=== PATIENT | male | born 1995 | race Caucasian/White ===

== ENCOUNTER 2018-03-26 14:51 | Observation (INO) ==
[2018-03-26] MEDS ORDERED: ONDANSETRON 4 MG/2 ML VIAL IVP ONE (15:03)
[2018-03-26] MEDS ORDERED: Acetaminophen 1000mg Inj 1,000 MG/100 ML VIAL IV PRN (15:03)
[2018-03-26] MEDS ORDERED: Sodium Chloride 0.9% 1,000 ML PRIMARY IV ONE (15:03)
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
[2018-03-26 15:20] LABS: BASOPHILS # (AUTO) 0.01 10*3/UL; BASOPHILS % (AUTO) 0.2 % (0-1); EOSINOPHILS # (AUTO) 0.03 10*3/UL; EOSINOPHILS % (AUTO) 0.5 % (0-8); Hematocrit [HCT] 40.5 % (42.0-52.0); Hemoglobin [HGB] 14.2 g/dL (14.0-18.0); LYMPHOCYTES # (AUTO) 1.02 10*3/uL; MEAN CORPUSCULAR HEMOGLOBIN 30.2 PG (27-31); MEAN CORPUSCULAR HGB CONC 35.1 g/dL (33-37); MEAN CORPUSCULAR VOLUME 86.2 FL (80-90); MEAN PLATELET VOLUME 10.5 FL (7.4-12.2); MONOCYTES # (AUTO) 0.43 10*3/UL (0.3-0.8); MONOCYTES % (AUTO) 7.2 % (5-15); NEUTROPHILS # (AUTO) 4.45 10*3/UL; NEUTROPHILS % (AUTO) 74.8 % (50-80)
[2018-03-26 15:28] LABS: PLATELET MORPHOLOGY COMMENT NORMAL MORPHOLOGY (NORM); RBC MORPHOLOGY COMMENT NORMAL MORPHOLOGY (NORM); WBC MORPHOLOGY COMMENT NORMAL MORPHOLOGY (NORM)
[2018-03-26 15:33] LABS: BLOOD UREA NITROGEN 17 mg/dL (7-22); BUN/CREATININE RATIO 15.45 (6-20); SERUM ALBUMIN 4.3 g/dL (3.5-4.8)
--- NOTE | 2018-03-26 16:59 | DI ---
EXAM: CT Head Without Intravenous Contrast CLINICAL HISTORY: ITS.REASON trauma Physician Notes: Blunt trauma to right side of face TECHNIQUE: Axial computed tomography images of the head/brain without intravenous contrast. COMPARISON: None FINDINGS: Brain: No acute infarct. Question trace subarachnoid hemorrhage and hemorrhagic contusions in the right frontal lobe versus partial volume averaging. No mass effect or midline shift. Trace pneumocephalus along the right frontal lobe. Ventricles and sulci: Normal. No ventriculomegaly or intraventricular hemorrhage. Skull: Right frontal skull fracture suggested given the pneumocephalus, but better seen on accompanying CT face. Subcutaneous tissues: Right facial soft tissue hematoma partially visualized. Right frontal soft tissue hematoma. Sinuses: Normal. No air-fluid levels or mucosal thickening. Mastoid air cells: Normal. Orbits: Gas also seen in the superior aspect of the right orbit, suggesting fracture of the roof of the right orbit, better seen on accompanying CT face. The globes are grossly unremarkable. Gas noted anterior to the right globe. IMPRESSION: 1. Right frontal bone fracture involving the roof of the right orbit with gas noted in the right orbit and trace pneumocephalus along the right frontal lobe. Please see accompanying CT face. 2. Question trace subarachnoid hemorrhage and hemorrhagic contusions in the right frontal lobe versus partial volume averaging. [employer] Call Doctor Trauma
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
[2018-03-26 17:23] LABS: BILIRUBIN,URINE NEGATIVE (NEG); CLARITY,URINE CLEAR (CLEAR); COLOR,URINE YELLOW (Y); GLUCOSE, URINE (UA) NEGATIVE (NEG); OCCULT BLOOD,URINE Trace-lysed (NEG); PROTEIN,URINE NEGATIVE (NEG); UROBILINOGEN,URINE 0.2 EU/dL (0.2)
[2018-03-26 17:27] LABS: BACTERIA,URINE RARE; URINE SAMPLE TYPE CLEAN CATCH URINE
[2018-03-26] MEDS ORDERED: DIPH,PERTUSS,TET(ADACEL) VAC/PF 0.5 ML (Tdap) IM ONE (17:43)
[2018-03-26] MEDS ORDERED: Amoxicill/Clav 875/125mg Tab 1 TAB TAB PO ONE (17:43)
[2018-03-26] MEDS ORDERED: ONDANSETRON 4 MG/2 ML VIAL IVP PRN (19:02)
[2018-03-26] MEDS ORDERED: CALCIUM CARBONATE 500 MG (TUMS) CHEWABLE TABLET PO PRN (19:02)
[2018-03-26] MEDS ORDERED: LIDOCAINE W/ SODIUM BICARB 0.5 ML SYR SUBD PRN (19:02)
[2018-03-26] MEDS ORDERED: ACETAMINOPHEN 325 MG TABLET PO PRN (19:02)
[2018-03-26] MEDS ORDERED: DOCUSATE 100 MG CAPSULE PO PRN (19:02)
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
--- NOTE | 2018-03-26 20:36 | PDOC ---
HPI - History of Present Illness Date of Service: 03/26/18 Time of Service: 20:31 Chief Complaint: Head injury with loss of consciousness History of Present Illness: This very pleasant 22-year-old male with no prior past medical history who comes in after hitting his face with a post pounder working on parents today. This happened this afternoon, he states he probably passed out for about 5 minutes. He hit the right side of his eye. He's never had anything like this happen before. He states his head hurts but he does not have a headache per se , and pain medications in the emergency room did help that. He also had a little neck pain with this but that went away. No nausea or vomiting. On workup he was found to have an orbital fracture on the right side but in my discussion with the emergency room physician and research electrician in [place], Dr. Dick, did not feel that these were operable fractures and felt that reevaluation in about 72-96 hours would be reasonable with an research electrician. In addition the emergency room physician conveyed that he spoke with the neurosurgeon, Dr. Avendano, in [place], who suggested that pneumocephalus which was noted needs to be followed with a head CT to make sure that it's not worsening in to be monitored for any changes in symptoms that might suggest increased intracranial pressure but likely this would resolve. Dr. ng, the emergency room physician and myself, reviewed the literature and found that the patient should be at a 30 angle while being monitor as well as be on high flow oxygen on and to try and avoid any Valsalva maneuvers. The patient has not had any cough or sneeze. He denies any change in vision. Past Medical History Medical History: None Surgical History: No prior surgeries Pertinent Family History: States his parents are healthy and no history of medical issues that he is aware of in his family. Past Social History: Does not smoke and rarely drinks. Single. In college at [employer]. Joining the [employer] after graduation. Tobacco Use: Never Smoker In the Past 12 Months, Have Used or Abuse Any of the Following Substance: None Alcohol Use: Occasionally Medication / Allergies Home Medications: Home Medications 3 Medication Instructions Recorded Confirmed Type NK [No Home Medications Reported] 03/26/18 History Allergies/Adverse Reactions: Allergies 3 Allergy/AdvReac Type Severity Reaction Status Date / Time No Known Allergies Allergy Verified 03/26/18 19:07 Review of Systems - Review of Systems All Systems: Reviewed & No Additional Complaints Except as Stated (I did a 12 point review systems and other than that discussed in history present illness it is negative.) Exam - Vitals Vital Signs: Vital Signs Temperature 98.0 F Temperature Source Temporal Artery Scan Pulse Rate [Pulse Oximeter] 70 Pulse Rate 75 Respiratory Rate 18 Blood Pressure [Right Arm] 142/94 Blood Pressure [Left Arm] 138/88 Blood Pressure 130/83 Pulse Ox 100 Oxygen Flow Rate 10 Oxygen Delivery Method Oxymask Height 6 ft 2 in Weight 178 lb 1 oz - General General Appearance: No Acute Distress, Cooperative - Head Head Exam: Normocephalic, Ecchymosis (Has some bruising around the right eye, and this extends on the forehead as well on the right side.. Extraocular muscles are intact.) - Eye Eye Exam: POSITIVE: EOMI, No Scleral Icterus, Periorbital Swelling (Right sided) - ENT ENT Exam: POSITIVE: Mucous Membranes Moist - Neck Neck Exam: Normal Inspection, No Tenderness, No Lymphadenopathy, No Thyromegaly , JVP is not Raised - Respiratory Respiratory Exam: POSITIVE: Clear to Auscultation - Bilaterally, Breathing Non Labored, Normal to Percussion and Palpation - Cardiovascular Cardiovascular Exam: POSITIVE: RRR, No Murmur, No Clicks, No Gallops, No Rubs, No JVD - GI/Abdominal GI/Abdominal Exam: POSITIVE: Normal Bowel Sounds, Non Tender, Non Distended, Soft - Rectal Rectal Exam: POSITIVE: Deferred - External Exam: POSITIVE: Deferred Exam: POSITIVE: Deferred - Extremities Extremities Exam: POSITIVE: No Clubbing Present, No Edema Present, No Cyanosis Present - Back Back Exam: POSITIVE: No CVA Tenderness - Neurological Neurological Exam: POSITIVE: Alert, Oriented x 3, No Facial Droop, Speech Intact / Clear, Moves All Extremities Equally - Psychiatric Psychiatric Exam: POSITIVE: Normal Affect, Normal Mood Results - Labs CBC and BMP: 03/26/18 15:03 03/26/18 15:03 Additional Lab Results: Laboratory Results 03/26/18 03/26/18 03/26/18 Range/Units 15:03 15:03 15:03 WBC 5.95 (4.8-10.8) 10^3/uL RBC 4.70 (4.70-6.10) 10^6/uL Hgb 14.2 (14.0-18.0) g/dL Hct 40.5 L (42.0-52.0) % MCV 86.2 (80-90) FL MCH 30.2 (27-31) PG MCHC 35.1 (33-37) g/dL RDW Std Deviation 41.4 (39-50) fL RDW Coeff of Darrell 13.3 (11.5-14.5) % Plt Count 196 (140-350) 10*3/uL MPV 10.5 (7.4-12.2) FL Immature Gran % (Auto) 0.2 (0-5) % Neut % (Auto) 74.8 (50-80) % Lymph % (Auto) 17.1 (10-50) % Osborne % (Auto) 7.2 (5-15) % Eos % (Auto) 0.5 (0-8) % Baso % (Auto) 0.2 (0-1) % Immature Gran # (Auto) 0.01 10*3/UL Neut # (Auto) 4.45 10*3/UL Lymph # (Auto) 1.02 10*3/uL Osborne # (Auto) 0.43 (0.3-0.8) 10*3/UL Eos # (Auto) 0.03 10*3/UL Baso # (Auto) 0.01 10*3/UL WBC Morphology Comment Normal morphology (NORM) Plt Morphology Comment Normal morphology (NORM) RBC Morph Comment Normal morphology (NORM) Sodium 139 (135-145) meq/L Potassium 3.8 (3.8-5.2) meq/L Chloride 109 (98-112) meq/L Carbon Dioxide 22 L (23-33) meq/L Anion Gap 8 (5-20) BUN 17 (7-22) mg/dL Creatinine 1.1 (0.70-1.50) mg/dL Estimated GFR > 60 (>60 ml/min/1.73m(2)) BUN/Creatinine Ratio 15.45 (6-20) Glucose 84 (78-110) mg/dL Calculated Osmolality 288.0 (267-292) mOsm/kg Calcium 9.5 (8.7-10.7) mg/dL Magnesium 1.8 (1.6-2.4) mg/dL Total Bilirubin 0.5 (0.3-1.2) mg/dL AST 27 (21-57) IU/L ALT 36 (21-72) IU/L Alkaline Phosphatase 44 (38-126) IU/L Total Protein 7.2 (6.1-8.0) g/dL Albumin 4.3 (3.5-4.8) g/dL Globulin 3.0 (2.50-4.10) g/dL Albumin/Globulin Ratio 1.40 (1.3-2.0) mg/g Ur Collection Type Clean catch urine Urine Color Yellow (Y) Urine Clarity Clear (CLEAR) Urine pH 6.0 (5.0-8.5) Ur Specific [place] 1.015 (1.005-1.030) Urine Protein Negative (NEG) mg/dl Urine Glucose (UA) Negative (NEG) mg/dL Urine Ketones 15 (NEG) Urine Occult Blood Trace-lysed H (NEG) Urine Nitrate Negative (NEG) Urine Bilirubin Negative (NEG) Urine Urobilinogen 0.2 (0.2) EU/dL Ur Leukocyte Esterase Negative (NEG) Urine RBC None (NONE) /hpf Urine WBC None (NONE) Ur Squamous Epith Cells None (NONE) Ur Renal Epithelial Cell None (NONE) Urine Crystals None Urine Bacteria Rare (NONE) Urine Casts None (NONE) Urine Mucus None (NONE) Urine Trichomonas None (NONE) Urine Yeast None (NONE) Ur Culture Indicated? Culture not set - Imaging Status: Image Reviewed by Me (Elective head CT and the maxillofacial CT. There appears to be slight break in the bone on the orbital side on the lateral aspect. I do not notice any blood on the head CT scan. Read and appreciated, pneumocephalus) Assessment and Plan - Patient Problems (1) Closed head injury Current Visit: Yes Status: Acute Code(s): S09.90XA - Unspecified injury of head, initial encounter Qualifiers: Encounter type: initial encounter Qualified Code(s): S09.90XA - Unspecified injury of head, initial encounter (2) Pneumocephalus Current Visit: Yes Status: Acute Code(s): G93.89 - Other specified disorders of brain (3) Concussion Current Visit: Yes Status: Acute Code(s): S06.0X9A - Concussion with loss of consciousness of unspecified duration, initial encounter Qualifiers: Encounter type: initial encounter Loss of consciousness presence/duration: with LOC of 30 min or less Qualified Code(s): S06.0X1A - Concussion with loss of consciousness of 30 minutes or less, initial encounter (4) Right orbital fracture Current Visit: Yes Status: Acute Code(s): S02.81XA - Fracture of other specified skull and facial bones, right side, initial encounter for closed fracture Qualifiers: Encounter type: initial encounter Fracture type: closed Qualified Code(s) : S02.81XA - Fracture of other specified skull and facial bones, right side, initial encounter for closed fracture - Assessment / Plan Additional Assessment/Plan Details: We will admit the patient for observation. Try to avoid Valsalva maneuver such as coughing and sneezing and I discussed that with the patient. If any of that develops will start a cough suppressant immediately. Pain medications are written for as well as antiemetics. Keep the head of bed at 30 (Villanueva position) High flow oxygen. Repeat head CT scan tomorrow. If worsened pneumocephalus, will get to a neurosurgeon. Otherwise, I recommend a repeat head CT scan in 3 weeks. The pneumocephalus should resolve by then. Augmentin for the next 7 days given the nasal bone fractures, and pneumocephalus. This will be prophylactic. Please note prophylactic antibiotics were also suggested by her nose and throat and they felt Augmentin would be fine. We need to work towards an ear nose and throat outpatient evaluation early this week. We'll try to get that done in [place]. This is for the facial fractures. Postconcussive syndrome could be a possibility, and I did discuss concussion symptoms with the patient. I'll print him off some information about this. Full code patient is agreeable to the above plan. Given that she medical nature of the patient's injuries, I did consult surgery for a trauma service opinion. Dr. Lopez is already seen the patient and offered his opinions.
[2018-03-26] MEDS: HYDROmorphone 2 MG/1 ML IVP PRN (21:14)
[2018-03-26] MEDS: Amoxicill/Clav 875/125mg Tab 1 TAB TAB PO SCH (21:16)
[2018-03-27] MEDS: HYDROmorphone 2 MG/1 ML IVP PRN (03:42)
[2018-03-27 04:46] VITALS: O2SAT 100
[2018-03-27] MEDS: HYDROcodone-APAP 5 MG -325 MG TABLET PO PRN ×2 (07:25→11:23)
--- NOTE | 2018-03-27 08:27 | DI ---
EXAM: CT Head Without Intravenous Contrast. CLINICAL HISTORY: Pneumocephalus TECHNIQUE: Axial computed tomography images of the head/brain without intravenous contrast. COMPARISON: 03/26/18 at 1549 hrs. FINDINGS: Brain: Again seen is trace pneumocephalus along the anterior right frontal convexity, unchanged to minimally decreased since the prior exam performed yesterday afternoon. No evidence of acute intracranial hemorrhage. No mass effect or midline shift. Ventricles: Unremarkable. No ventriculomegaly. Bones: Again seen is a nondisplaced fracture through the posterior wall of the right frontal sinus and along the right orbital roof. Overlying right frontal scalp soft tissue swelling. Again seen is right periorbital subcutaneous emphysema. Sinuses: Minimal blood products again seen within the right frontal sinus. Remaining paranasal sinuses are normally pneumatized. Mastoid air cells: Unremarkable as visualized. No mastoid effusion. IMPRESSION: Trace pneumocephalus along the anterior right frontal convexity, unchanged to minimally decreased since prior study. No intracranial hemorrhage or mass effect. Nondisplaced fracture of the posterior wall of the right frontal sinus and along the right orbital roof, better evaluated on recent maxillofacial CT.
[2018-03-27] MEDS: Amoxicill/Clav 875/125mg Tab 1 TAB TAB PO SCH (09:05)
[2018-03-27 11:04] VITALS: BP 113/75; RESP 17; TEMP 97.1
--- NOTE | 2018-03-27 12:03 | DCSUMMARY ---
Hospitalization Summary Admit Date: 03/26/2018 Discharge Date: 03/27/18 Primary Diagnosis:: pneumocephalus Secondary Diagnosis:: Right frontal bone fractures along the right frontal sinus (posterior orbit) Right frontal periorbital and soft tissue hematomas Hospital Course: This very pleasant 22-year-old male who was placing fence posts and with a post pounder, when he somehow hit his head going down on the post pounder on the right side. He lost consciousness for upwards of 5 minutes. He came in for evaluation and was found to have fracture of the posterior wall of the right frontal sinus and along the right orbital roof. His head hurt, but pain was well-controlled with Dilaudid and [place]. He did not have any nausea or vomiting. Incidentally, he was also found to have pneumocephalus. The patient was admitted for observation per recommendations from neurosurgery and ear nose and throat in [place], [place], and his repeat head CT scan did not show any worsening of the pneumocephalus, and in fact if anything, it appeared better on today's CT scan. No evidence to support intracranial hemorrhage on today's CT scan. The patient was managed in the hospital in Villanueva's position at 30, high flow oxygen, and pain medications. He did not have any cough or sneezing to have problems with Valsalva maneuvers. We did warn him of discharge to make sure he took cough medicine if he had any cough, and to avoid constipation and avoid sneezing is much as possible and also, the patient was told to avoid blowing his nose is much as possible. He got tetanus in the emergency room and he is on Augmentin prophylactically for the next 6 days prior to (total of 7). We will arrange an ENT appointment for the patient this week to follow-up on the orbital fracture. I did review her case study and the results of 47 patient 's without 42 were managed conservatively with 5 being managed surgically. In addition we gave him instructions on concussion therapy, I told him as well that if he has symptoms of concussion lasting beyond 3 weeks that he should visit the neurologist. I recommended that he have a repeat head CT scan to ensure resolution of pneumocephalus in the next 3 weeks. We gave him copies of his images and CT scan reports for follow-up. Today, he complains that his head hurts, but pain is fairly well-controlled, no nausea, no vomiting, swelling is improved overnight actually over the right orbit. Some bruising in the right forehead. He really wants to go home and his mother is here as well. They both agree with the discharge plan. Assessment and Plan: 1. As per discharge assessments noted 2. Disposition: Patient is discharged home. 3. Condition on discharge, stable and improved. 4. Diet: regular diet 5. Activities: resume normal activities, but avoid contact sports and anything where he would have to wear helmet to avoid worsening concussion symptoms 6. Follow-Up: 1. See primary care physician in 3 weeks to reevaluate and get CT scan to make sure pneumocephalus has resolved 2. Ear nose and throat physician this week. That appointment will be arranged. 7. Medications at the Time of Discharge: Home Medications 3 Medication Instructions Recorded Confirmed Type Amoxicill/Clav 875/125mg 1 tab PO BID #12 tab 03/27/18 Rx [Augmentin 875/125mg] HYDROcodone/APAP 5/325 Tab [[place] 1 tab PO Q4H PRN #20 tab 03/27/18 Rx 5/325 Tab] Exam - Vitals Vital Signs: Vital Signs Temperature 97.1 F Temperature Source Temporal Artery Scan Pulse Rate [Apical] 68 Pulse Rate [Pulse Oximeter] 58 Pulse Rate 75 Respiratory Rate 17 Blood Pressure [Right Arm] 113/75 Blood Pressure [Left Arm] 117/72 Blood Pressure 130/83 Pulse Ox 100 Oxygen Flow Rate 10 Oxygen Delivery Method Oxymask Height 6 ft 2 in Weight 178 lb 7 oz - General General Appearance: No Acute Distress, Cooperative - Head Head Exam: Normocephalic, Ecchymosis (Improved, mostly concentrated to the forehead on the right side superior to the right eye) - Eye Eye Exam: POSITIVE: EOMI, No Scleral Icterus, Periorbital Swelling (Improved) - Respiratory Respiratory Exam: POSITIVE: Clear to Auscultation - Bilaterally, Breathing Non Labored - Cardiovascular Cardiovascular Exam: POSITIVE: RRR, No Murmur, No Clicks, No Gallops, No Rubs, No JVD - GI/Abdominal GI/Abdominal Exam: POSITIVE: Normal Bowel Sounds, Non Tender, Non Distended, Soft - Extremities Extremities Exam: POSITIVE: No Clubbing Present, No Edema Present, No Cyanosis Present - Neurological Neurological Exam: POSITIVE: Alert, Oriented x 3, Normal Gait, No Facial Droop, Speech Intact / Clear, Moves All Extremities Equally - Psychiatric Psychiatric Exam: POSITIVE: Normal Affect, Normal Mood Data Peritnent Studies: Laboratory Results 03/26/18 03/26/18 03/26/18 Range/Units 15:03 15:03 15:03 WBC 5.95 (4.8-10.8) 10^3/uL RBC 4.70 (4.70-6.10) 10^6/uL Hgb 14.2 (14.0-18.0) g/dL Hct 40.5 L (42.0-52.0) % MCV 86.2 (80-90) FL MCH 30.2 (27-31) PG MCHC 35.1 (33-37) g/dL RDW Std Deviation 41.4 (39-50) fL RDW Coeff of Darrell 13.3 (11.5-14.5) % Plt Count 196 (140-350) 10*3/uL MPV 10.5 (7.4-12.2) FL Immature Gran % (Auto) 0.2 (0-5) % Neut % (Auto) 74.8 (50-80) % Lymph % (Auto) 17.1 (10-50) % [place] % (Auto) 7.2 (5-15) % Eos % (Auto) 0.5 (0-8) % Baso % (Auto) 0.2 (0-1) % Immature Gran # (Auto) 0.01 10*3/UL Neut # (Auto) 4.45 10*3/UL Lymph # (Auto) 1.02 10*3/uL [place] # (Auto) 0.43 (0.3-0.8) 10*3/UL Eos # (Auto) 0.03 10*3/UL Baso # (Auto) 0.01 10*3/UL WBC Morphology Comment Normal morphology (NORM) Plt Morphology Comment Normal morphology (NORM) RBC Morph Comment Normal morphology (NORM) Sodium 139 (135-145) meq/L Potassium 3.8 (3.8-5.2) meq/L Chloride 109 (98-112) meq/L Carbon Dioxide 22 L (23-33) meq/L Anion Gap 8 (5-20) BUN 17 (7-22) mg/dL Creatinine 1.1 (0.70-1.50) mg/dL Estimated GFR > 60 (>60 ml/min/1.73m(2)) BUN/Creatinine Ratio 15.45 (6-20) Glucose 84 (78-110) mg/dL Calculated Osmolality 288.0 (267-292) mOsm/kg Calcium 9.5 (8.7-10.7) mg/dL Magnesium 1.8 (1.6-2.4) mg/dL Total Bilirubin 0.5 (0.3-1.2) mg/dL AST 27 (21-57) IU/L ALT 36 (21-72) IU/L Alkaline Phosphatase 44 (38-126) IU/L Total Protein 7.2 (6.1-8.0) g/dL Albumin 4.3 (3.5-4.8) g/dL Globulin 3.0 (2.50-4.10) g/dL Albumin/Globulin Ratio 1.40 (1.3-2.0) mg/g Ur Collection Type Clean catch urine Urine Color Yellow (Y) Urine Clarity Clear (CLEAR) Urine pH 6.0 (5.0-8.5) Ur Specific [place] 1.015 (1.005-1.030) Urine Protein Negative (NEG) mg/dl Urine Glucose (UA) Negative (NEG) mg/dL Urine Ketones 15 (NEG) Urine Occult Blood Trace-lysed H (NEG) Urine Nitrate Negative (NEG) Urine Bilirubin Negative (NEG) Urine Urobilinogen 0.2 (0.2) EU/dL Ur Leukocyte Esterase Negative (NEG) Urine RBC None (NONE) /hpf Urine WBC None (NONE) Ur Squamous Epith Cells None (NONE) Ur Renal Epithelial Cell None (NONE) Urine Crystals None Urine Bacteria Rare (NONE) Urine Casts None (NONE) Urine Mucus None (NONE) Urine Trichomonas None (NONE) Urine Yeast None (NONE) Ur Culture Indicated? Culture not set Procedures: [address] [facility] [place] [address] PH: DD: [phone] FAX: [phone] ~DIAGNOSTIC IMAGING REPORT~ Patient: Bryce Triana : 1995 Sex: M Age: 22 Exam Name: CT Head WO Contrast Exam Date: 03/27/18 Report # : [id number] CPT Code: 57530 EMR/MR #: [id number] Ordering: RAMIN CAMACHO Admiting: RAMIN CAMACHO DO Primary: NONE,NONE Attending: RAMIN CAMACHO DO Signed EXAM: CT Head Without Intravenous Contrast. CLINICAL HISTORY: Pneumocephalus TECHNIQUE: Axial computed tomography images of the head/brain without intravenous contrast. COMPARISON: 03/26/18 at 1549 hrs. FINDINGS: Brain: Again seen is trace pneumocephalus along the anterior right frontal convexity, unchanged to minimally decreased since the prior exam performed yesterday afternoon. No evidence of acute intracranial hemorrhage. No mass effect or midline shift. Ventricles: Unremarkable. No ventriculomegaly. Bones: Again seen is a nondisplaced fracture through the posterior wall of the right frontal sinus and along the right orbital roof. Overlying right frontal scalp soft tissue swelling. Again seen is right periorbital subcutaneous emphysema. Sinuses: Minimal blood products again seen within the right frontal sinus. Remaining paranasal sinuses are normally pneumatized. Mastoid air cells: Unremarkable as visualized. No mastoid effusion. IMPRESSION: Trace pneumocephalus along the anterior right frontal convexity, unchanged to minimally decreased since prior study. No intracranial hemorrhage or mass effect. Nondisplaced fracture of the posterior wall of the right frontal sinus and along the right orbital roof, better evaluated on recent maxillofacial CT. Dictated By: Ernie Ricketts MD Signed By: 03/27/18 0827 Ernie Ricketts MD [address] [facility] [place] [address] PH: DD: [phone] FAX: [phone] ~DIAGNOSTIC IMAGING REPORT~ Patient: KongBryce Parks : 1995 Sex: M Age: 22 Exam Name: CT Head WO Contrast Exam Date: 03/26/18 Report # : [id number] CPT Code: 96452 EMR/MR #: [id number] Ordering: David Crump Admiting: Primary: NONE,NONE Attending: Signed EXAM: CT Head Without Intravenous Contrast CLINICAL HISTORY: ITS.REASON trauma Physician Notes: Blunt trauma to right side of face TECHNIQUE: Axial computed tomography images of the head/brain without intravenous contrast. COMPARISON: None FINDINGS: Brain: No acute infarct. Question trace subarachnoid hemorrhage and hemorrhagic contusions in the right frontal lobe versus partial volume averaging. No mass effect or midline shift. Trace pneumocephalus along the right frontal lobe. Ventricles and sulci: Normal. No ventriculomegaly or intraventricular hemorrhage. Skull: Right frontal skull fracture suggested given the pneumocephalus, but better seen on accompanying CT face. Subcutaneous tissues: Right facial soft tissue hematoma partially visualized. Right frontal soft tissue hematoma. Sinuses: Normal. No air-fluid levels or mucosal thickening. Mastoid air cells: Normal. Orbits: Gas also seen in the superior aspect of the right orbit, suggesting fracture of the roof of the right orbit, better seen on accompanying CT face. The globes are grossly unremarkable. Gas noted anterior to the right globe. IMPRESSION: 1. Right frontal bone fracture involving the roof of the right orbit with gas noted in the right orbit and trace pneumocephalus along the right frontal lobe. Please see accompanying CT face. 2. Question trace subarachnoid hemorrhage and hemorrhagic contusions in the right frontal lobe versus partial volume averaging. [employer] Call Doctor Trauma Dictated By: Rachel Little MD. Signed By: 03/26/18 165 Rachel Little MD. ~~REPORT ADDENDUM ~~ ADDENDUM - Added by Rachel Little M.D. on 03/26/2018 5:11 PM (-07:00) Small amount of fluid/blood in the anterior right ethmoid air cells and inferior right frontal sinus. Addendum Dictated By: Rachel Little Addendum Signed By: Rachel Little ~~REPORT ADDENDUM ~~ ADDENDUM - Added by Rachel Little M.D. on 03/26/2018 5:11 PM (-07:00) Small amount of fluid/blood in the anterior right ethmoid air cells and inferior right frontal sinus. Addendum Dictated By: Rachel Little Addendum Signed By: Rachel Little [address] [place] [address] PH: DD: [phone] FAX: [phone] ~DIAGNOSTIC IMAGING REPORT~ Patient: Bryce Triana : 1995 Sex: M Age: 22 Exam Name: CT Maxfacial WO/con Face Sinus Exam Date: 03/26/18 Report # : [id number] CPT Code: 95330 EMR/MR #: [id number] Ordering: David Crump Admiting: Primary: NONE,NONE Attending: Signed EXAM: CT Maxillofacial Without Intravenous Contrast CLINICAL HISTORY: ITS.REASON trauma Physician Notes: Tech Comments: TECHNIQUE: Axial computed tomography images of the face without intravenous contrast. COMPARISON: None FINDINGS: FACIAL BONES: Please see below. Nondisplaced fracture also noted involving the right frontal bone along the intracranial aspect of the right frontal sinus. NASAL FOSSA: Normal. No significant nasal septal deviation. No nasal bone fracture. SINUSES: Trace mucosal thickening in the maxillary sinuses inferiorly. Trace fluid or blood in the anterior right ethmoid air cells and inferior right frontal sinus. ORBITS: Nondisplaced fracture of the roof of the right orbit. Prominent gas in the superior and lateral aspects of the right orbit. No entrapment of the extraocular muscles. The globes are unremarkable. SOFT TISSUES: Right frontal soft tissue hematoma. Right periorbital soft tissue hematoma. OTHER: Small scattered lymph nodes are likely reactive. Trace pneumocephalus along the right frontal lobe. IMPRESSION: 1. Nondisplaced fractures in the right frontal bone along both sides of the right frontal sinus. 2. Prominent gas in the superior and lateral aspects of the right orbit. Trace pneumocephalus along the right frontal lobe. 3. Right frontal and right periorbital soft tissue hematomas. [employer] 03/26/18 17:30 Call Doctor Regarding Trauma, called Dr. David Crump on 03/26 17:31 (-06:00) Dictated By: Rachel Little MD. Signed By: 03/26/18 1729 Rachel Little MD. Patient Problems - Patient Problem List (1) Closed head injury Status: Acute Code(s): S09.90XA - Unspecified injury of head, initial encounter Qualifiers: Encounter type: initial encounter Qualified Code(s): S09.90XA - Unspecified injury of head, initial encounter Category: Medical (2) Pneumocephalus Status: Acute Code(s): G93.89 - Other specified disorders of brain Category : Medical (3) Concussion Status: Acute Code(s): S06.0X9A - Concussion with loss of consciousness of unspecified duration, initial encounter Qualifiers: Encounter type: initial encounter Loss of consciousness presence/duration: with LOC of 30 min or less Qualified Code(s): S06.0X1A - Concussion with loss of consciousness of 30 minutes or less, initial encounter Category: Medical (4) Right orbital fracture Status: Acute Code(s): S02.81XA - Fracture of other specified skull and facial bones, right side, initial encounter for closed fracture Qualifiers: Encounter type: initial encounter Fracture type: closed Qualified Code(s) : S02.81XA - Fracture of other specified skull and facial bones, right side, initial encounter for closed fracture Category: Medical
--- NOTE | 2018-05-05 14:05 | PDOC(PROG) ---
General Note Progress Note: Bryce gave me a call and states that he still having some occasional headaches , and fatigue. His concentration is okay at this point and he continues with the studies. He's been very concerned that he may be developing a post concussive syndrome. He was not able to follow-up with ear nose and throat due to financial concerns. I was able to speak with our business office and I referred him to [place] to discuss the financial aspects of his concerns further. I strongly recommended that he see ear nose and throat for second opinion on pneumocephalus and any potential need for surgery. He will arrange that in [place] himself with Dr. Jhaveri. I will prescribe amitriptyline, 25 mg daily at bedtime for postconcussive syndrome headaches and fatigue but I told the patient if he still has symptoms in May that he really needs to see student health and neurologist for further evaluation. We will trial oxygen for 1 week as well through [facility]. Prescription written and I did discuss with the patient that there is no strong data 1 the other as to whether oxygen or hyperbaric therapy works for postconcussive syndrome. Patient states he is otherwise doing much better and he states that his headaches are fairly light in nature and he describes them as a tension headache type sensation with one episode of light and auditory sensitivity, that is not common. Generally speaking, his headaches are migratory in nature but do not seem to follow any sort of migraine pattern and there is no nausea and vomiting associated with these. Assessment and plan: 1. Post impression syndrome 2. Pneumocephaly following inferior orbit fracture on right Try amitriptyline 25 mg daily at bedtime Oxygen for 1 week at 2 L per nasal cannula Try and help patient with billing office to make sure he does his follow-up regardless of financial issues. I really would like in nose and throat airway and on whether or not the patient would need any surgery for this fracture. If symptomatic in May, I have recommended patient see student health at [facility] for further evaluation and neurology referral. We will try to check back with the patient in May and we'll help facilitate neurology evaluation if necessary. Patient Problems - Patient Problem List (1) Closed head injury Status: Acute Code(s): S09.90XA - Unspecified injury of head, initial encounter Qualifiers: Encounter type: initial encounter Qualified Code(s): S09.90XA - Unspecified injury of head, initial encounter Category: Medical (2) Pneumocephalus Status: Acute Code(s): G93.89 - Other specified disorders of brain Category : Medical (3) Concussion Status: Acute Code(s): S06.0X9A - Concussion with loss of consciousness of unspecified duration, initial encounter Qualifiers: Encounter type: initial encounter Loss of consciousness presence/duration: with LOC of 30 min or less Qualified Code(s): S06.0X1A - Concussion with loss of consciousness of 30 minutes or less, initial encounter Category: Medical (4) Right orbital fracture Status: Acute Code(s): S02.81XA - Fracture of other specified skull and facial bones, right side, initial encounter for closed fracture Qualifiers: Encounter type: initial encounter Fracture type: closed Qualified Code(s) : S02.81XA - Fracture of other specified skull and facial bones, right side, initial encounter for closed fracture Category: Medical
== END 2018-03-27 11:54 | disposition home or self-care (01) ==
LOC: MED/SURG 14:51 → ER 14:51 → MED/SURG 18:24
PROVIDERS: ADMIT Family Medicine; ATTEND Family Medicine